=== PATIENT | female | born 1945 | race Caucasian/White ===

== ENCOUNTER 2021-02-16 14:27 | Outpatient (CLI) | payer MEDICARE | END 2021-02-16 14:28 | disposition home or self-care (01) | LOC: CSHMRI 14:27 | PROVIDERS: ATTEND Nurse Practitioner Acute Care | DX: R41.89 Other symptoms and signs involving cognitive functions and awareness (principal); R94.02 Abnormal brain scan | CPT/HCPCS: 70553 ==